=== PATIENT | male | born 1975 | race Two or more races ===

== ENCOUNTER 2024-12-20 10:37 | Emergency (ER) | payer OTHER ==
[2024-12-20 11:07] VITALS: BP 133/78; PULSE 77; RESP 18; TEMP 98.2; BMI 21.7
[2024-12-20 12:45] LABS: ABSOLUTE IMMATURE GRANULOCYTES 0.04 x10^3/uL (0.0-0.031); BASOPHILS # 0.03 x10^3/uL (0.01-0.08); EOSINOPHIL % 0.2 % (0.8-7.0); EOSINOPHILS # 0.02 x10^3/uL (0.04-0.54); MCHC 34.6 g/dl (32.3-36.5); MEAN CELL VOLUME 88.5 fl (79.0-92.2); MEAN PLT VOLUME 10.2 fl (9.4-12.4); MONOCYTE # 1.13 x10^3/uL (0.30-0.82); MONOCYTE % 9.6 % (5.3-12.2); RDW 12.0 % (12.1-15.9)
[2024-12-20 12:50] LABS: EPI CELLS 4 /uL (0-25.1); HYALINE CASTS 1 /uL (0-3.1); URINE APPEARANCE CLEAR; URINE BACTERIA 8 /uL (0-1359); URINE BILIRUBIN NEGATIVE (NEGATIVE); URINE COLOR DK YELLOW; URINE GLUCOSE (UA) NEGATIVE (NEGATIVE); URINE KETONE 1+ (NEGATIVE); URINE LEUK ESTERASE NEGATIVE (NEGATIVE); URINE NITRITE NEGATIVE (NEGATIVE); URINE PROTEIN 1+ (NEGATIVE); URINE RBC 39 /uL (0-23.9); URINE UROBILINOGEN 1.0 mg/dL (0.2-1.0); URINE WBC 11 /uL (0-25.8)
[2024-12-20] MEDS ORDERED: QUEtiapine FUMARATE 100 MG TABLET (FP) ONE (13:02)
[2024-12-20] MEDS: QUEtiapine FUMARATE 100 MG TABLET (FP) PO ONE (13:05)
[2024-12-20 13:51] LABS: HCV DIAGNOSTIC IN-HOUSE W/RFLX NON-REACTIVE (NONREACTIVE); HIV INTERPRETATION NEGATIVE (NEGATIVE)
[2024-12-20 14:11] LABS: GLUCOSE,RANDOM 95.0 mg/dL (74-106); TOT PROT 8.1 g/dl (6.4-8.2)
[2024-12-20 14:12] LABS: CO2 22.0 mmol/L (21-32)
[2024-12-20 14:14] LABS: ALK PHOS 51.0 U/L (40-150)
[2024-12-20 14:17] LABS: CREATININE 0.92 mg/dL (0.55-1.3); SGOT/AST 33.0 U/L (5-34); SGPT/ALT 24.0 U/L (0-55)
== END 2024-12-20 14:49 | disposition home or self-care (01) ==
LOC: JER 10:37
DX: G47.00 Insomnia, unspecified (principal); R21 Rash and other nonspecific skin eruption; R63.8 Other symptoms and signs concerning food and fluid intake
CPT/HCPCS: 36415; 80053; 81003; 85025; 86803; 87086; 87389; 99283-25